=== PATIENT | male | born 1950 | race Hispanic/Latino ===

== ENCOUNTER 2018-03-12 15:26 | Emergency (ER) | payer OTHER ==
[2018-03-12] MEDS ORDERED: Sodium Chloride 0.9% 1,000 ML IV STA (15:59)
--- NOTE | 2018-03-12 16:26 | ED PDOC ---
HPI: Influenza Time Seen by Provider: 03/12/18 15:39 Chief Complaint: Chest Pain Chief Complaint (Provider): Fever, Body ache, Malaise History Per: Patient Exam Limitations: no limitations Onset/Duration Of Symptoms: Days (1) Symptoms include: fever, bodyaches, sore throat, nasal congestion Sick Contacts (Context): None Additional complaint(s):: 67 year old male presents to the ED for an evaluation of fever, body ache, malaise since yesterday. Patient states he is from [facility] visiting since January. He has Tmax of 102F and was seen at [facility] today where he was told he is positive for flu A test and advised to go to the ED for further evaluation. He has mild cough that is non-productive and states of chronic cough that has not worsened. Also reports of mild nasal congestion, mild sore throat and bilateral leg swelling that is chronic that has not worsened. He states the leg swelling improves when elevating his legs and worsens when standing upright for a long period of time. Otherwise, he denies vomiting, diarrhea, decreased a ppetite or known sick contacts. PMD: located in [facility] Past Medical History Reviewed: Historical Data, Nursing Documentation, Vital Signs Vital Signs: Last Vital Signs Temp 99.5 F 03/12/18 15:37 Pulse 103 H 03/12/18 15:37 Resp 20 03/12/18 15:37 BP 98/56 L 03/12/18 15:37 Pulse Ox 99 03/12/18 15:37 - Medical History Other PMH: ischemic heart disease - Surgical History Surgical History: Cholecystectomy Other surgeries: Hip replacement, prostate surgery - Family History Family History: States: Unknown Family Hx - Social History Current smoker - smoking cessation education provided: No - Allergies Allergies/Adverse Reactions: Allergies Allergy/AdvReac Type Severity Reaction Status Date / Time No Known Allergies Allergy Verified 03/12/18 15:31 Review of Systems ROS Statement: Except As Marked, All Systems Reviewed And Found Negative (As per HPI, otherwise negative) Constitutional: Positive for: Fever, Malaise, Other (body ache) ENT: Positive for: Nose Congestion (mild), Throat Pain (mild) Respiratory: Positive for: Cough (mild) Gastrointestinal: Negative for: Vomiting, Diarrhea Musculoskeletal: Positive for: Other (bilateral leg swelling that is chronic) Physical Exam - Physical Exam Appears: Positive for: Non-toxic, No Acute Distress Head Exam: Positive for: ATRAUMATIC, NORMOCEPHALIC Skin: Positive for: Warm, Dry Eye Exam: Positive for: EOMI, PERRL ENT: Positive for: Other (Tacky mucous membrane ). Negative for: Pharyngeal Erythema, Tonsillar Exudate Neck: Positive for: Painless ROM, Supple Cardiovascular/Chest: Positive for: Regular Rate, Rhythm. Negative for: Murmur Respiratory: Positive for: Normal Breath Sounds. Negative for: Decreased Breath Sounds, Respiratory Distress Gastrointestinal/Abdominal: Positive for: Soft. Negative for: Tenderness Back: Positive for: Normal Inspection. Negative for: Muscle Spasm Extremity: Positive for: Pedal Edema (trace on bilateral lower leg ). Negative for: Deformity Lymphatic: Negative for: Adenopathy Neurologic/Psych: Positive for: Alert. Negative for: Motor/Sensory Deficits Medical Decision Making Medical Decision Making: Time: 1557 Impression: influenza Differential Diagnosis: pneumonia, CHF, sepsis Plan: * EKG * B-type natriuretic peptide * CMP * Lact acid, Plasma * Magnesium * Phosphorous * Troponin * CBC w/ Differential * Partial Thromboplastin Time [COAG] * Prothrombin Time * Chest two views [RAD] * Normal Saline 1000 mls/hr * Tamiflu Cap 75mg * Toradol 15mg * Tylenol 975mg * Blood culture * IV Insertion * Reevaluation EKG: no ST segment abnormalities,normal sinus rhythm at 98bpm, 02 stats normal and QA inferior leads Time: 1653 FINDINGS: LUNGS: No active pulmonary disease. PLEURA: No significant pleural effusion identified. No pneumothorax apparent. CARDIOVASCULAR: No aortic atherosclerotic calcification present. Normal cardiac size. No pulmonary vascular congestion. OSSEOUS STRUCTURES: Marginal osteophyte formation common nonspecific finding that can be seen with ankylosing spondylitis. VISUALIZED UPPER ABDOMEN: Normal. OTHER FINDINGS: None. IMPRESSION: No active disease. Labs with no emergently significant abnormalities. Pt feels better s/p IVF, Tylenol, Toradol and Tamiflu. Stable for discharge with mandatory 2-3 days followup. Reasons to rter reviewed with patient. Eager to be discharged. Scribe Attestation: Documented by Sanjuana Gilliam acting as a scribe for Jocelynn Suarez MD Provider Scribe Attestation: All medical record entries made by the Scribe were at my direction and personally dictated by me. I have reviewed the chart and agree that the record accurately reflects my personal performance of the history, physical exam, medical decision making, and the department course for this patient. I have also personally directed, reviewed, and agree with the discharge instructions and disposition. - Laboratory Results Result Diagrams: 03/12/18 17:15 03/12/18 17:15 - ECG ECG: Positive for: Interpreted By Me, Viewed By Me ECG Rhythm: Positive for: Normal ST Segment, Sinus Rhythm Interpretation Of ECG: QA inferior leads Rate: 89 O2 Sat by Pulse Oximetry: 99 Disposition - Clinical Impression Clinical Impression: Influenza Counseled Patient/Family Regarding: Studies Performed, Diagnosis, Need For Followup, Rx Given - Disposition Referrals: [facility] [place] [Outside] [facility] [place] [Outside] Disposition: Routine/Home Disposition Time: 21:00 Condition: STABLE Additional Instructions: PLEASE DRINK PLENTY OF HYDRATING FLUIDS AND REST TAKE TYLENOL NEEDED FOR BODY ACHES AND FEVER. YOU CAN ADD ON ADVIL WELL. RETURN TO ER IMMEDIATELY FOR CHEST PAIN, FAINTING OR NEAR FAINTING, DIFFICULTY BREATHING, OR ANY OTHER WORRISOME SYMPTOMS FOLLOWUP AT [facility] OR CLINIC ON THURSDAY FOR REEVALUATION Instructions: Flu, Adult (DC) Forms: [employer] (Korean)
--- NOTE | 2018-03-12 16:57 | RAD ---
Date of service: 03/12/2018 HISTORY: fever cough flu r/o pneumonia COMPARISON: No prior. TECHNIQUE: Chest PA and lateral FINDINGS: LUNGS: No active pulmonary disease. PLEURA: No significant pleural effusion identified. No pneumothorax apparent. CARDIOVASCULAR: No aortic atherosclerotic calcification present. Normal cardiac size. No pulmonary vascular congestion. OSSEOUS STRUCTURES: Marginal osteophyte formation common nonspecific finding that can be seen with ankylosing spondylitis. VISUALIZED UPPER ABDOMEN: Normal. OTHER FINDINGS: None. IMPRESSION: No active disease.
[2018-03-12 17:12] VITALS: RESP 18
[2018-03-12 17:19] LABS: BASO % 1.2 % (0.0-2.0); EOS % 0.5 % (0.0-4.0); HEMOGLOBIN 10.8 g/dL (12.0-18.0); LYMPH # 0.6 K/uL (1.0-4.3); LYMPH % 21.2 % (20.0-40.0); MEAN CELL VOLUME 81.3 fl (80.0-94.0); MEAN CORPUSCULAR HEMOGLOBIN 26.7 pg (27.0-31.0); MEAN CORPUSCULAR HGB CONC 32.8 g/dL (33.0-37.0); MEAN PLATELET VOLUME 8.4 fl (7.2-11.7); MONO # 0.5 K/uL (0.0-0.8); MONO % 19.3 % (0.0-10.0); NEUT # 1.6 K/uL (1.8-7.0); NEUT % 57.8 % (50.0-75.0); NRBC % 0.1 % (0.0-0.0); RBC 4.05 Mil/uL (4.40-5.90); RED CELL DISTRIBUTION WIDTH 17.1 % (11.5-14.5); WHITE BLOOD COUNT 2.8 K/uL (4.8-10.8)
[2018-03-12 17:35] LABS: INR 1.3; PROTHROMBIN TIME 14.7 Seconds (9.8-13.1)
[2018-03-12 17:38] LABS: PARTIAL THROMBOPLASTIN TIME 34.7 Seconds (25.6-37.1)
[2018-03-12 17:56] LABS: BLOOD UREA NITROGEN 13 mg/dl (9-20); GFR NON-AFRICAN AMERICAN > 60
[2018-03-12 17:57] LABS: ALB/GLOB RATIO 0.9 (1.0-2.1); ALBUMIN 3.6 g/dL (3.5-5.0); ALT/SGPT 26 U/L (21-72); AST/SGOT 24 U/L (17-59); CALCIUM 8.7 mg/dL (8.4-10.2)
[2018-03-12 18:08] LABS: B-TYPE NATRIURETIC PEPTIDE 634 pg/ml (0-900)
[2018-03-12 19:01] VITALS: O2SAT 99
[2018-03-12 19:39] VITALS: BP 99/50; TEMP 98.8
[2018-03-13 00:03] VITALS: PULSE 89
--- NOTE | 2018-03-13 17:10 | CARD ---
APPROVED REPORT Date of service: 03/12/2018 EKG Measurement Heart [id number] <Conclusion> Sinus rhythm with occasional premature ventricular complexes Inferior infarct, age undetermined Anterolateral infarct, age undetermined Abnormal ECG
== END 2018-03-12 19:30 | disposition home or self-care (01) ==
LOC: H.ER 15:26
DX: J11.1 Influenza due to unidentified influenza virus with other respiratory manifestations (principal); Z96.649 Presence of unspecified artificial hip joint; I25.9 Chronic ischemic heart disease, unspecified
CPT/HCPCS: 71046; 80053; 83605; 83735; 83880; 84100; 84484; 85025; 85610; 85730; 87040; 93005; 96361; 96374; 99285; J1885; J7030